=== PATIENT | female | born 1970 | race Caucasian/White ===

== ENCOUNTER 2020-10-06 13:11 | Observation (INO) | payer MEDICAID, SELFPAY ==
--- NOTE | ~2020-10-06 | CT_ITS ---
EXAMINATION: CT abdomen pelvis w con EXAM DATE: 10/06/2020 15:02 INDICATION: Abdominal pain. Yellow skin, jaundice. TECHNIQUE: Spiral CT of the abdomen and pelvis was performed following intravenous injection of 100 m L Omnipaque 350. Axial, coronal and sagittal images were reviewed. The dose-length product (DLP) fo r this examination was 278.01 mGy-cm. The exposure was tailored according to patient size (auto mA e xposure control), and iterative reconstruction (ASIR) was used as additional dose reduction technique . There is no prior study for comparison. FINDINGS: The gallbladder is only mildly distended with several small calcified gallstones including in the gallbladder neck. There is either pericholecystic fluid and/or gallbladder wall edema which is nonspecific given the periportal edema also present. Typically obstructed cystic duct leads to a dil ated gallbladder. Consider hepatitis and right upper quadrant sonogram to better evaluate gallbladder and check for possibility of sonographic Read's sign. Spleen, pancreas are unremarkable. Kidneys enhance symmetrically and there is no hydronephrosis. The uterus is unremarkable. The bladder is undistended at time of imaging. There is no retroperitoneal or pelvic lymphadenopathy. There is mild scattered arteriosclerotic disease. Small free pelvic flu id. The appendix is not positively visualized. There is no pericecal inflammatory change to suggest appe ndicitis. The stomach and small bowel are unremarkable. There is expected amount of colonic stool. No free intraperitoneal gas. The heart is normal in size. There are no pericardial or pleural e ffusions. The lung bases are unremarkable. There are no osteoblastic or osteolytic lesions identifi ed. IMPRESSION: Periportal edema, and gallbladder wall thickening which could be reactive versus perichol ecystic fluid. Cholelithiasis. Recommend checking for hepatitis. Can't exclude acute cholecystitis, c onsider right upper quadrant sonogram. Reviewed, dictated and finalized at location B. PERSON IMPRESSION: Periportal edema, and gallbladder wall thickening which could be re active versus pericholecystic fluid. Cholelithiasis. Recommend checking for hep atitis. Can't exclude acute cholecystitis, consider right upper quadrant sonogr am.
--- NOTE | ~2020-10-06 | US_ITS ---
EXAMINATION: US abdomen limited EXAM DATE: 10/06/2020 15:56 INDICATION: Abnormal liver function tests. TECHNIQUE: Multiple grayscale and Doppler images of the abdomen right upper quadrant were obtained (marc y a technologist who performed the scan) and subsequently reviewed. There is no prior study for alva leon. FINDINGS: The pancreatic head and body are normal in appearance. The pancreatic tail is not visualized. The l iver has normal echogenicity and contour. There are no focal liver lesions identified. There is no evidence of intrahepatic biliary duct dilation. Portal venous flow was seen in the hepatopedal, nor mal direction and has normal Doppler waveform. No right-sided hydronephrosis. Common bile duct measures 3 mm, which is normal. There is cholelithiasis within only mildly distended gallbladder. There is severely edematous gallbladder wall at 8 mm. No pericholecystic fluid. Technol ogist performing exam reports patient did not demonstrate sonographic Read's sign. Please note fawn t this sign is less reliable in patients who have received pain medication. IMPRESSION: Cholelithiasis. Nonspecific gallbladder wall thickening most likely reactive given absenc e of sonographic Read's sign and only mild gallbladder distention. Chronic cholecystitis not exclud able. Reviewed, dictated and finalized at location B. POLISHER IMPRESSION: Cholelithiasis. Nonspecific gallbladder wall thickening most likely reactive given absence of sonographic Read's sign and only mild gallbladder distention. Chronic cholecystitis not excludable.
[2020-10-06 13:49] VITALS: BP 119/73; PULSE 88; RESP 14; TEMP 36.6; O2SAT 99
[2020-10-06 14:12] LABS: Basophils Absolute Auto 0.1 K/mm3 (0.0-0.1); Basophils Percent Auto 1.5 % (0.2-1.2); Eosinophils Absolute Auto 0.1 K/mm3 (0-0.3); Eosinophils Percent Auto 1.7 % (0-4.4); Hematocrit 43.7 % (37.0-47.0); Hemoglobin 14.4 g/dL (12.0-15.0); Immature Granulocyte Absolute 0.01 K/mm3 (0.00-0.031); Immature Granulocyte Percent A 0.2 % (0-0.5); Lymphocytes Absolute Auto 1.05 K/mm3 (0.9-3.2); Lymphocytes Percent Auto 20.3 % (18.3-44.2); Mean Corpuscular Hemoglobin 29.9 pg (26-34); Mean Corpuscular Volume 90.7 fl (80-100); Mean Platelet Volume 10.6 fl (7.4-10.4); Monocytes Absolute Auto 0.7 K/mm3 (0.1-0.6); Monocytes Percent Auto 12.7 % (2.6-8.5); Neutrophils Absolute Auto 3.3 K/mm3 (1.3-6.7); Neutrophils Percent Auto 63.6 % (45.5-73.1); Platelet Count Result 282 k/mm3 (150-375); Red Blood Count 4.82 M/mm3 (4.2-5.4); Red Cell Distribution Width 19.9 % (11.5-14.5); White Blood Count 5.2 K/mm3 (4.5-10.0)
--- NOTE | 2020-10-06 14:35 | ED.GENADULT ---
HPI - General Adult General Chief complaint: Unspecified Stated complaint: JAUNDICE Time Seen by Provider: 10/06/20 14:11 Source: patient History of Present Illness HPI narrative: Patient is a 50 y/o female complaining of moderate yellowish discoloration of eyes since 2 weeks ago. There is no alleviating or exacerbating factor. She also has dark urine. She has some diarrhea and nausea, but no vomiting or abdominal pain. She states that she drinks heavily until 2 years. Now she drinks 2 beers daily. Related Data Home Medications Medication Instructions Recorded Confirmed No Home Medications 10/06/20 10/06/20 Allergies Allergy/AdvReac Type Severity Reaction Status Date / Time metronidazole [From Flagyl] Allergy Rash Verified 10/06/20 14:06 Penicillins Allergy Rash Verified 10/06/20 14:06 Review of Systems Constitutional: Constitutional: Reports as per HPI, Denies chills, Denies fever(s), Denies headache(s) and Denies weakness Eyes: Eyes: Denies blurry vision and Reports other ENT: Denies headache(s) and Denies neck pain Cardiovascular: Cardiovascular: Denies chest pain and Denies dyspnea Respiratory: Respiratory: Denies cough and Denies dyspnea Gastrointestinal: Gastrointestinal: Denies abdominal pain, Reports diarrhea, Denies nausea and Denies vomiting Genitourinary: Genitourinary: Denies hematuria and Denies dysuria Musculoskeletal: Musculoskeletal: Denies back pain and Denies neck pain Integumentary/Breasts: Skin/Breast: Reports jaundice Neurologic: Denies headache(s) and Denies weakness Exam Const: General: no acute distress and well developed Orientation/consciousness: oriented to person, oriented to place, oriented to time and patient oriented x3 HENMT: Head: normocephalic Ears: external ears normal General nose exam: Normal external nose present Eyes: General: appearance normal, both eyes and all related structures Conjunctivae: conjunctivae normal Sclera: scleral abnormality (yellow discoloration) diffuse Neck: Neck: normal visual inspection and full ROM Chest: Chest palpation & inspection: normal inspection of the chest and no tenderness Resp: Effort & Inspection: normal respiratory effort Auscultation: clear to auscultation bilaterally Cardio: Rate: regular rate Rhythm: regular rhythm GI: GI Palp: No abdominal tenderness and Yes Soft to palpation Skin: General skin exam: turgor normal and jaundice Neuro: General: oriented to person, oriented to place, oriented to time and patient oriented x3 Cognition (Neuro): normal cognition Extrem: General: normal to inspection, full ROM and no pedal edema Psych: Appearance: grossly normal Mental Status: mental status grossly normal Affect: normal affect Course Consultations Consultation #1: Discussed with JULIETA Chang, who agrees to admit. Date: 10/06/20 Time: 16:45 Consultation #2: Discussed with Dr. Kenyon Parkinson, who agrees to consult. He recommends ordering Hep B DNA PCR. Date: 10/06/20 Time: 16:48 Vital Signs Vital signs: Vital Signs Temperature 36.6 C 10/06/20 13:49 Pulse Rate 88 10/06/20 13:49 Respiratory Rate 14 10/06/20 13:49 Blood Pressure 119/73 10/06/20 13:49 Pulse Oximetry 99 10/06/20 13:49 Temperature 36.6 C 10/06/20 13:49 Pulse Rate 88 10/06/20 13:49 Respiratory Rate 14 10/06/20 13:49 Blood Pressure 119/73 10/06/20 13:49 Pulse Oximetry 99 10/06/20 13:49 Medical Decision Making Vital Signs Vital Signs: Vital Signs Temperature 36.6 C 10/06/20 13:49 Pulse Rate 88 10/06/20 13:49 Respiratory Rate 14 10/06/20 13:49 Blood Pressure 119/73 10/06/20 13:49 Pulse Oximetry 99 10/06/20 13:49 Temperature 36.6 C 10/06/20 13:49 Pulse Rate 88 10/06/20 13:49 Respiratory Rate 14 10/06/20 13:49 Blood Pressure 119/73 10/06/20 13:49 Pulse Oximetry 99 10/06/20 13:49 Lab Data Result diagrams: 10/06/20 13:55 10/06/20 13:55
[2020-10-06 14:37] LABS: Add Urine Microscopic? YES; Appearance Urine Cloudy (Clear); Bacteria Urine 2+ /hpf; Bilirubin Urine 2+ (Negative); Blood Urine 1+ (Negative); Color Urine Amber (Yellow); Glucose Urine UA Negative (Negative); Ketones Urine Negative (Negative); Leukocyte Esterase Ur Negative LEU/UL (Negative); Mucus Urine Heavy /lpf; Nitrate Urine Negative (Negative); Protein Urine 1+ mg/dL (Negative); Specific Grav Ur 1.017 (1.001-1.035); Squamous Epithelial Cell Urine Many /hpf (Few); WBC Urine 0-3 /hpf
[2020-10-06 14:45] LABS: Lactic Acid Reflex 1.3 mmol/L (0.7-2.1)
[2020-10-06 14:47] LABS: Albumin Level 3.3 g/dL (3.5-5.1); Alkaline Phosphatase 161 U/L (38-126); Anion Gap 4 mmol/L (8-16); Blood Urea Nitrogen 13 mg/dL (7-17); Calcium 9.3 mg/dL (8.4-10.2); Carbon Dioxide 30 mmol/L (22-30); Chloride 107 mmol/L (98-107); Estimated CRCL calculation 52 ml/min; Estimated Glomerular Filt Rate 59; Glucose 105 mg/dL (65-105); Lipase 90 U/L (23-300); Potassium 3.5 mmol/L (3.4-5.0); Sodium 141 mmol/L (137-145)
[2020-10-06 15:10] LABS: INR 1.2; Prothrombin Time 15.3 Seconds (11.1-14.7)
[2020-10-06 15:11] LABS: Partial Thromboplastin Time 31.6 SECONDS (22.3-36.8)
[2020-10-06 15:16] LABS: Alanine Aminotransferase 1354 U/L (4-35); Bilirubin,Total 30.4 mg/dL (0.2-1.3)
[2020-10-06 15:26] LABS: Aspartate Amino Transferase 1831 U/L (14-36)
[2020-10-06 15:34] LABS: Ammonia < 9 umol/L (9-30)
[2020-10-06 15:51] LABS: HAV RESULT Negative (Negative); Hepatitis B Core IgM Result Reactive (Negative); Hepatitis B Surface Antigen Positive (Negative)
[2020-10-06 15:52] LABS: Hepatitis C Virus Antibody Negative (Negative)
[2020-10-06 16:21] LABS: Acetaminophen < 10 ug/mL (10-30); Ethanol < 10 mg/dL (<10)
--- NOTE | 2020-10-06 18:01 | PC.NURSE ---
dinner tray ordered for pt at this time, spoke to clarence in dietary
[2020-10-06 18:11] VITALS: BP 126/76; PULSE 92; RESP 16; O2SAT 98
[2020-10-06 18:22] LABS: HIV 1/2 Ab P24 Ag Result Negative (Negative)
--- NOTE | 2020-10-06 18:35 | ADMGEN ---
This patient, Liane Diaz, was admitted to Medical Room 253-01. Patient/family oriented to hospital policies and general routines including ID bracelet, bed and alarms, visiting hours, pain management, procedures, bathroom and other care routines, personal items, smoking policy, room service/diet, and visiting hours. Information on how to activate the Rapid Response Team has been discussed. Patient/Family are encouraged to report perceived risks to care and to ask questions if they do not understand what they are told or what they should do.
[2020-10-06] MEDS: SODIUM CHLORIDE 0.9% IV 1,000 ML 125 ML IV CONT (18:40)
--- NOTE | 2020-10-06 19:00 | PM.IMHP ---
H&P: HPI History of Present Illness Date/Time: 10/06/20 19:00 Chief Complaint: Yellowing of the eyes and skin. Narrative: Liane Diaz is a 50-year-old female former smoker with history of alcohol abuse and lupus who presented to the emergency department earlier today via private vehicle from home after she noticed yellowing of her eyes and skin. About 2 weeks ago she looked in the mirror and thought that the whites of her eyes appeared to be a bit yellow and later that day a co-worker remarked that her skin appeared a bit yellow as well. Around the same time she developed intermittent upper abdominal discomfort and fullness, bloating, nausea, and diarrhea. Her stools are described as green and watery, but due become less frequent if and when she takes Pepto-Bismol. Her urine has been dark yellow/orange. She also reports pruritus, dry skin, and a lacy purple discoloration on her legs, arms, and hands. Today are consistent with acute hepatitis and marked hyperbilirubinemia. Hepatitis-B surface antigen was positive and hepatitis-B core IgM antibody was reactive, indicating acute infection. She admits to having unprotected sex recently with a man that she believes has a history of IV drug use. No known exposure to any other body fluids. No personal history of IV drug use. She has multiple tattoos but has not had a the new ink for many years. She denies fever, chills, sweats, vomiting, hematemesis, melena, and hematochezia. Review of Systems Review of Systems: Narrative: Twelve systems were reviewed with pertinent positives and negatives as per HPI. She denies headache. No recent cold or flu symptoms. 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 She drank heavily in the past, now drinking only 2 to 3 beers per night. No history of alcohol withdrawal signs or symptoms. No history of seizure. No dysuria. Except as documented, all other systems were reviewed and are negative. [facility] Past Medical History Medical History (Updated 10/06/20 @ 23:01 by Charlene Curran PA-C) Asthma History of alcohol abuse Drank heavily for about 20 years, now drinks a couple of beers a night. History of tobacco use Systemic lupus erythematosus Told she had lupus and was referred to a specialist in [place] however did not have follow-up. Surgical History Surgical History (Updated 10/06/20 @ 22:47 by Charlene Curran PA-C) History of facial surgery Patient reportedly had 62 facial plastic surgeries after being attacked by a dog at the age of 6. History of incision and drainage Left forearm spider bite. Family History Family History (Updated 10/06/20 @ 22:48 by Charlene Curran PA-C) Father Cerebral aneurysm Systemic lupus erythematosus Sibling Muscular dystrophy Social History Social History (Updated 10/06/20 @ 22:50 by Charlene Curran PA-C) Social History: The patient lives in [place] with her parents. No children, not . She smoked about half a pack of cigarettes off and on for many years and quit in 2018. She drank heavily in the past but for the last 2 years she has only been drinking 2 beers most evenings. Occasional marijuana use. She designates her parents as her surrogate decision makers and she wishes to be a full code. Years smoked: 30 Smoking status: Former smoker Smoking end date: 09/25/19 Alcohol intake: current Drinks per week: 2 Substance use: current Substance use type: marijuana Last use: 09/18/2020 Spiritual care concerns: No Meds Home Medications and Allergies Home Medications Medication Instructions Recorded Confirmed Type No Home Medications 10/06/20 10/06/20 History Allergies Allergy/AdvReac Type Severity Reaction Status Date / Time metronidazole [From Flagyl] Allergy Rash Verified 10/06/20 18:53 Penicillins Allergy Rash Verified
[2020-10-06 19:14] VITALS: BP 110/76; PULSE 74; RESP 19; TEMP 36.6; O2SAT 100; BMI 24.3
[2020-10-06 20:00] VITALS: PULSE 74; RESP 19; O2SAT 100
[2020-10-06 22:00] VITALS: BP 108/64; PULSE 60; RESP 16; TEMP 36; O2SAT 94
[2020-10-07 01:59] VITALS: BP 104/60; PULSE 79; RESP 16; TEMP 36.7; O2SAT 99
[2020-10-07 05:54] LABS: Basophils Absolute Auto 0.1 K/mm3 (0.0-0.1); Basophils Percent Auto 1.1 % (0.2-1.2); Eosinophils Absolute Auto 0.2 K/mm3 (0-0.3); Eosinophils Percent Auto 3.8 % (0-4.4); Hematocrit 37.4 % (37.0-47.0); Hemoglobin 12.5 g/dL (12.0-15.0); Lymphocytes Absolute Auto 1.25 K/mm3 (0.9-3.2); Lymphocytes Percent Auto 27.7 % (18.3-44.2); Mean Corpuscular HGB Conc 33.4 g/dl (32-36); Mean Corpuscular Hemoglobin 29.9 pg (26-34); Mean Corpuscular Volume 89.5 fl (80-100); Mean Platelet Volume 10.8 fl (7.4-10.4); Monocytes Absolute Auto 0.5 K/mm3 (0.1-0.6); Monocytes Percent Auto 11.8 % (2.6-8.5); Neutrophils Absolute Auto 2.5 K/mm3 (1.3-6.7); Neutrophils Percent Auto 55.6 % (45.5-73.1); Platelet Count Result 258 k/mm3 (150-375); Red Blood Count 4.18 M/mm3 (4.2-5.4); Red Cell Distribution Width 19.9 % (11.5-14.5); White Blood Count 4.5 K/mm3 (4.5-10.0)
[2020-10-07 05:56] LABS: Lactic Acid Reflex 0.9 mmol/L (0.7-2.1)
[2020-10-07 06:00] VITALS: BP 112/62; PULSE 66; RESP 16; TEMP 36.5; O2SAT 98
[2020-10-07 06:01] LABS: INR 1.4; Prothrombin Time 17.5 Seconds (11.1-14.7)
[2020-10-07 06:16] LABS: Albumin Level 2.6 g/dL (3.5-5.1); Alkaline Phosphatase 148 U/L (38-126); Anion Gap 3 mmol/L (8-16); Bilirubin,Total 25.4 mg/dL (0.2-1.3); Blood Urea Nitrogen 12 mg/dL (7-17); Calcium 8.6 mg/dL (8.4-10.2); Carbon Dioxide 26 mmol/L (22-30); Chloride 111 mmol/L (98-107); Estimated CRCL calculation 57 ml/min; Estimated Glomerular Filt Rate > 60; Glucose 80 mg/dL (65-105); Potassium 3.6 mmol/L (3.4-5.0); Sodium 140 mmol/L (137-145)
[2020-10-07 06:17] LABS: Alanine Aminotransferase 1032 U/L (4-35)
[2020-10-07 07:20] LABS: Aspartate Amino Transferase 1446 U/L (14-36)
[2020-10-07 10:00] VITALS: BP 90/50; PULSE 69; RESP 15; TEMP 36.6; O2SAT 97
--- NOTE | 2020-10-07 13:34 | PM.IMPN ---
Progress Note: A&P Assessment and Plan (1) Hepatitis B: Qualifiers: Hepatic coma status: without hepatic coma Hepatitis delta agent presence: without delta-agent Viral hepatitis chronicity: acute Qualified Code(s): B16.9 - Acute hepatitis B without delta-agent and without hepatic coma Code(s): B19.10 - Unspecified viral hepatitis B without hepatic coma Status: Acute Assessment and Plan: The patient appears to have acute hepatitis B. Expectant management at this time with supportive care. Dr. Forrester (Gastroenterology) has been consulted and his input is appreciated. Await further recommendations from Dr. Prescott Should she stay overnight, then monitor labs (2) Jaundice: Code(s): R17 - Unspecified jaundice Status: Acute Assessment and Plan: Please see above a/p. Reviewed her imaging and it is felt chronic cholecystitis is unlikely; Cholelithiasis noted (3) Alcohol abuse, daily use: Code(s): F10.10 - Alcohol abuse, uncomplicated Status: Acute Assessment and Plan: Alcohol cessation encouraged again today (4) Cholelithiasis: Code(s): K80.20 - Calculus of gallbladder without cholecystitis without obstruction Status: Acute Assessment and Plan: As noted on above imaging. (5) Systemic lupus erythematosus: Code(s): M32.9 - Systemic lupus erythematosus, unspecified Status: Inactive Assessment and Plan: F/u with PCP as outpatient Subjective Date/time seen: 10/07/20 13:34 Interval history: Patient is a 50 yo F with history of alcohol abuse, SLE, and asthma who is seen in follow up for Hepatitis B and jaundice. Patient states she feels okay today. She has no medical complaints at the moment. She is tolerating her diet. She has no had a BM since yesterday; she has noticed some cramping associate with BMs. No other complaints. Denies f/c/s, headaches, dizziness, lightheadedness, cp/palpitations, sob/cough, n/v/d/c, abd pain, changes in BMs, dysuria, calf pain/swelling. Review of Systems Review of Systems: All systems reviewed & are unremarkable except as noted in HPI and below Exam Narrative: Exam Narrative: General: Patient resting supine in bed in no acute distress. HEENT: Normocephalic, EOMI, oral mucosa moist. B/l scleral icterus Cardiovascular: Rate and rhythm are regular. No notable murmur, rub, or gallop. Respiratory: Lungs clear to auscultation all wahl. Non-labored breathing. Abdomen: Soft, mildly tender to palpation in LLQ, non-distended, bowel sounds present. Extremities: Peripheral pulses intact. No edema. NTTP b/l calves Neuro: No focal neurological deficits. Speech is clear. Objective Data Vital Signs Vital Signs: Last Vital Signs Temp 98 F 10/07/20 10:00 Pulse 69 10/07/20 10:00 Resp 15 10/07/20 10:00 BP 90/50 L 10/07/20 10:00 Pulse Ox 97 10/07/20 10:00 Intake/Output Intake/Output: Intake & Output 10/04/20 10/05/20 10/06/20 10/07/20 23:59 23:59 23:59 23:59 Intake Total 1080 Balance 1080 Meds/Results Radiology Results: ITS Impressions Abdomen/Pelvis CT 10/06/20 15:05 IMPRESSION: Periportal edema, and gallbladder wall thickening which could be reactive versus pericholecystic fluid. Cholelithiasis. Recommend checking for hepatitis. Can't exclude acute cholecystitis, consider right upper quadrant sonogram. Abdomen Ultrasound 10/06/20 15:57 IMPRESSION: Cholelithiasis. Nonspecific gallbladder wall thickening most likely reactive given absence of sonographic Read's sign and only mild gallbladder distention. Chronic cholecystitis not excludable. Labs Labs: Laboratory Tests 10/07/20 05:33 10/07/20 05:33 Quality VTE Prophylaxis VTE prophylaxis: mechan
[2020-10-07 14:00] VITALS: BP 92/48; PULSE 80; RESP 17; TEMP 37.6; O2SAT 93
--- NOTE | 2020-10-07 16:10 | WPDGICN ---
Assessment and Plan Assessment and plan (1) Acute hepatitis B: Code(s): B16.9 - Acute hepatitis B without delta-agent and without hepatic coma Status: Acute Assessment and Plan: acute hepatitis B, will repeat inr in the morning and trend liver enzymes bili coming down, probably she can go home tomorrow as long as she is tolerating diet HBe Ag/Ab and DNA ordered, hiv negative will get also HDV she will need follow up in office in 5 weeks with repeat labs 1 week prior to document resolution of hepatitis, if persistent then consider to start treatment with tenofovir or entecavir she should not drink alcohol at all (she says that will have 1 beer every other day or so) thiamine, mvi and nutrition (2) Jaundice: Code(s): R17 - Unspecified jaundice Status: Acute Assessment and Plan: from hepatitis B family members should be tested and receive vaccine she may have also underlying liver disease when she was alcoholic (3) Alcohol abuse, daily use: Code(s): F10.10 - Alcohol abuse, uncomplicated Status: Acute (4) Cholelithiasis: Code(s): K80.20 - Calculus of gallbladder without cholecystitis without obstruction Status: Acute GI Consult Note Consult date/time: 10/07/20 16:10 Reason for consult: acute hepatitis HPI: Liane Diaz is a 50 year old female former alcoholic (she says that was drinking heavily for years 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 She was found to have hepatitis with bilirubin 20, transaminases 1800's and serology showed Hepatitis-B surface antigen positive and hepatitis-B core IgM antibody was reactive, INR 1.4. She denies recent tattoos (had previously), recent travel but she has a monogamous partner having unprotected sex- she thinks that he has history of hepatitis C and IV drug use. Denies drug abuse. She had blood transfusion about 5 years ago when she was . No confusion, bleeding. Decrease appetite but she is eating. CT scan showed periportal edema, and gallbladder wall thickening which could be reactive versus pericholecystic fluid. Cholelithiasis. Review of Systems Constitutional: Constitutional: Reports fatigue and Reports weakness Eyes: Eyes: Denies blurry vision ENT: Reports Normal hearing present Cardiovascular: Cardiovascular: Denies chest pain Respiratory: Respiratory: Denies dyspnea Gastrointestinal: Gastrointestinal: Reports abdominal pain and Reports diarrhea Genitourinary: Genitourinary: Denies dysuria Musculoskeletal: Musculoskeletal: Denies neck pain Integumentary/Breasts: Skin/Breast: Denies dry skin Neurologic: Denies headache(s) Psychiatric: Psychiatric: Reports anxiety Hematologic/Lymphatic: Hematologic/Lymphatic: Denies easy bruising PMFSH Past Medical History Medical History (Updated 10/06/20 @ 23:01 by Charlene Curran PA-C) Asthma History of alcohol abuse Drank heavily for about 20 years, now drinks a couple of beers a night. History of tobacco use Systemic lupus erythematosus Told she had lupus and was referred to a specialist in [place] however did not have follow-up. Surgical History Surgical History (Updated 10/06/20 @ 22:47 by Charlene Curran PA-C) History of facial surgery Patient reportedly had 62 facial plastic surgeries after being attacked by a dog at the age of 6. History of incision and drainage Left forearm spider bite. Family History Family History (Updated 10/06/20 @ 22:48 by Charlene Curran PA-C) Father Cerebral aneurysm Systemic lupus erythematosus Sibling Muscular dystrophy Social History Social History (Updated 10/06/20 @ 22:50 by Charlene Curran PA-C) Social History: The patient lives in [place] with her parents. No children, not . She smoked about half a pack of cig
[2020-10-07 17:30] VITALS: BP 98/50; PULSE 76; RESP 19; TEMP 36.8; O2SAT 97
[2020-10-07 20:00] VITALS: BP 114/68; PULSE 75; RESP 16; TEMP 37.1; O2SAT 100
[2020-10-08 00:26] VITALS: BP 118/56; PULSE 69; RESP 16; TEMP 37.1; O2SAT 100
[2020-10-08 04:00] VITALS: BP 110/60; PULSE 65; RESP 16; TEMP 36.8; O2SAT 100
[2020-10-08 05:55] LABS: INR 1.3; Prothrombin Time 17.1 Seconds (11.1-14.7)
[2020-10-08 05:58] LABS: Hematocrit 37.2 % (37.0-47.0); Hemoglobin 12.3 g/dL (12.0-15.0); Mean Corpuscular HGB Conc 33.1 g/dl (32-36); Mean Corpuscular Hemoglobin 29.6 pg (26-34); Mean Corpuscular Volume 89.4 fl (80-100); Mean Platelet Volume 10.4 fl (7.4-10.4); Platelet Count Result 265 k/mm3 (150-375); Red Blood Count 4.16 M/mm3 (4.2-5.4); Red Cell Distribution Width 19.6 % (11.5-14.5); White Blood Count 4.6 K/mm3 (4.5-10.0)
[2020-10-08 06:00] VITALS: BP 110/60; PULSE 65; RESP 16; TEMP 36.8; O2SAT 100
[2020-10-08 06:06] LABS: Albumin Level 2.5 g/dL (3.5-5.1); Alkaline Phosphatase 152 U/L (38-126); Anion Gap 2 mmol/L (8-16); Bilirubin,Total 25.8 mg/dL (0.2-1.3); Blood Urea Nitrogen 12 mg/dL (7-17); Calcium 8.4 mg/dL (8.4-10.2); Carbon Dioxide 28 mmol/L (22-30); Chloride 109 mmol/L (98-107); Estimated CRCL calculation 57 ml/min; Estimated Glomerular Filt Rate > 60; Glucose 85 mg/dL (65-105); Potassium 3.6 mmol/L (3.4-5.0); Sodium 139 mmol/L (137-145)
[2020-10-08 06:50] LABS: Alanine Aminotransferase 939 U/L (4-35); Aspartate Amino Transferase 1362 U/L (14-36)
[2020-10-08] MEDS: THIAMINE HCL 100 MG TABLET 200 MG PO (08:14)
--- NOTE | 2020-10-08 09:06 | PM.DS ---
DS: Admitting Diagnosis Admitting Diagnosis Admitting Diagnosis: Acute hepatitis B DS: Discharge Diagnosis Discharge Diagnosis (1) Hepatitis B: Qualifiers: Hepatic coma status: without hepatic coma Hepatitis delta agent presence: without delta-agent Viral hepatitis chronicity: acute Qualified Code(s): B16.9 - Acute hepatitis B without delta-agent and without hepatic coma Code(s): B19.10 - Unspecified viral hepatitis B without hepatic coma Status: Acute Assessment and Plan: The patient appears to have acute hepatitis B. Expectant management at this time with supportive care. Dr. Forrester (Gastroenterology) has been consulted and his input is appreciated. Discussed case with him today who was okay with discharge; follow up labs in 2-5 weeks with CMP, CBC, INR and hep b surface antigen, then follow up with him afterwords D/c today Repeat CBC, CMP, INR, and hep b surface antigen as noted above F/u with PCP and Dr. Prescott (2) Jaundice: Code(s): R17 - Unspecified jaundice Status: Acute Assessment and Plan: Please see above a/p. Reviewed her imaging and it is felt chronic cholecystitis is unlikely; Cholelithiasis noted (3) Alcohol abuse, daily use: Code(s): F10.10 - Alcohol abuse, uncomplicated Status: Acute Assessment and Plan: Alcohol cessation encouraged again today (4) Cholelithiasis: Code(s): K80.20 - Calculus of gallbladder without cholecystitis without obstruction Status: Acute Assessment and Plan: As noted on above imaging. (5) Systemic lupus erythematosus: Code(s): M32.9 - Systemic lupus erythematosus, unspecified Status: Inactive Assessment and Plan: F/u with PCP as outpatient DS: Summary Hospital Course Reason for hospitalization: Hepatitis B, jaundice, elevated bilirubin Hospital Course: Date of arrival: 10/06/20 Date of discharge: 10/08/20 Patient is a 50-year-old female former smoker with history of alcohol abuse and lupus who presented to the emergency department earlier on 10/06 via private vehicle from home after she noticed yellowing of her eyes and skin. While in the ED, she was found to have marked hyperbilirubinemia and acute hepatitis with positive hepatitis B surface antigen and reactive hepatitis b core IgM antibody indicating acute infection. She admitted to having unprotected sex recently with a man she believed had history of IV drug use; no known exposure to any other body fluids or personal IV drug use, or no recent tattoos. Dr. Forrester (GI) Patient admitted under this setting for supportive care for hepatitis infection. Please see H&P for further details. Patient was admitted to the hospitalist service for further management/treatment. Patient was initially given IV fluids although this was discontinued. She was tolerating he diet. Her labs trended down, but were still significantly elevated by discharge. Dr. Prescott ordered hep b DNA pcr and quant. Patient was to follow up with Dr. Prescott in roughly a months time for further monitoring of her CMP and INR. She was to also follow up with her PCP as well. Further management of her hepatitis B infection was to be done as outpatient. Patient agreeable and comfortable with plan for discharge. Patient hemodynamically stable and in improved condition for discharge on 10/08 Status at Discharge Overall status at discharge: patient is progressing back to baseline Time Spent with Patient Time attestation: Total time spent providing and/or coordinating discharge services: Time spent: Greater than 30 minutes Exam Narrative: Exam Narrative: General: Patient resting supine in bed in no acute distress. HEENT: Normoceph
[2020-10-08 17:28] LABS: Hepatitis B DNA PCR 3.64 Log IU/mL; Hepatitis B DNA PCR 4380 IU/mL
[2020-10-10 18:31] LABS: Hepatitis Be Antibody Nonreactive; Hepatitis Be Antigen Reactive
[2020-10-15 18:21] LABS: Hepatitis Delta Antibody NEGATIVE
== END 2020-10-08 10:40 | disposition home or self-care (01) ==
LOC: ANHED 17:02 → ANH2MED 17:37
PROVIDERS: Emergency Medicine; Internal Medicine Gastroenterology; Physician Assistant; Admitting Provider Family Medicine; Emergency Provider Emergency Medicine; Visit Provider Physician Assistant
DX: B16.9 Acute hepatitis B without delta-agent and without hepatic coma (principal); R17 Unspecified jaundice; M32.9 Systemic lupus erythematosus, unspecified; F12.90 Cannabis use, unspecified, uncomplicated; F10.10 Alcohol abuse, uncomplicated; K80.20 Calculus of gallbladder without cholecystitis without obstruction; J45.909 Unspecified asthma, uncomplicated; Z87.891 Personal history of nicotine dependence; Z20.2 Contact with and (suspected) exposure to infections with a predominantly sexual mode of transmission
CPT/HCPCS: 36415; 74177; 76705; 80053; 80074; 80307; 81001; 81025; 82140; 83605; 83690; 83735; 85025; 85027; 85610; 85730; 86692; 86703; 86707; 87040; 87350; 87517; 96360; 96361; 99285; A9270; G0378; G0379; G0432; J7030; Q9967

== ENCOUNTER 2020-10-29 17:34 | Inpatient (IN) | payer MEDICAID, SELFPAY ==
[2020-10-29] VITALS (18 sets, daily range): BP systolic 76–100; BP diastolic 53–78; PULSE 69–100; RESP 13–36; TEMP 37.6–38.3; O2SAT 91–100
--- NOTE | ~2020-10-29 | XR_ITS ---
XR chest port-a-cath/central 10/29/2020 22:44 Indication: Central line placement Procedure: AP portable chest Comparison: 10/29/2020 Findings: There is extensive bilateral airspace disease, compatible with pneumonia or edema. Pleural effusion or pneumothorax. No acute osseous abnormality. Impression: 1: Extensive bilateral airspace disease, left greater than right, pneumonia versus edema. Reviewed, dictated and finalized at location A. E BUILDER Impression: 1: Extensive bilateral airspace disease, left greater than right, pneumonia shonna yaritza edema.
--- NOTE | ~2020-10-29 | XR_ITS ---
XR chest 1V portable 10/29/2020 18:46 Indication: Cough and shortness of breath. Lupus. Procedure: AP portable chest Comparison: No prior studies for comparison. Findings: Patchy left-sided airspace disease. Focal right lower lung zone airspace disease. No pleura l effusion. Heart size normal. No pneumothorax. Impression: 1: Patchy bilateral airspace disease, left greater than right, consistent with pneumonia. Reviewed, dictated and finalized at location A. MANAGER Impression: 1: Patchy bilateral airspace disease, left greater than right, consistent with pneumonia.
--- NOTE | 2020-10-29 17:57 | ECG_ITS ---
Measurements Intervals [place] Rate: 79 P: 95 [place]: 162 QRS: 83 QRSD: 90 T: 75 QT: 358 QTc: 411 Interpretive Statements SINUS RHYTHM EARLY PRECORDIAL R/S TRANSITION BASELINE ARTIFACT- II, III, AVR, AVL, AVF, V4-V6 BORDERLINE ECG Electronically Signed On 10-29-2020 18:54:21 ARTIFICIAL BREEDING TECHNICIAN by Emre Lambert D.O.
--- NOTE | 2020-10-29 17:59 | ED.WEAKNESS ---
HPI - Weakness General Chief complaint: Fever Stated complaint: cough/jaundice Time Seen by Provider: 10/29/20 17:49 History of Present Illness HPI Narrative: 50 yo female w/ h/o hepatitis presents to the ED for weakness, fever, cough, SOB. She has not been feeling well for quite awhile. Over the last few days developed cough, SOB, subjective fever. Additional symptoms in clude nausea, poor appetite, and jaundice. She reports that she was here for liver failure last month. 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 On review it appears that shewas treated for acute hepatitis B infection. She believes fawn her mother has COVID-19, whom she lives with. She cannot provide any of the details. Related Data Allergies Allergy/AdvReac Type Severity Reaction Status Date / Time metronidazole [From Flagyl] Allergy Rash Verified 10/29/20 21:20 Penicillins Allergy Rash Verified 10/29/20 21:20 Review of Systems Review of Systems: All systems reviewed & are unremarkable except as noted in HPI and below Constitutional: Constitutional: Reports fever(s) and Reports weakness Eyes: Eyes: Reports no additional eye complaints Cardiovascular: Cardiovascular: Denies chest pain Respiratory: Respiratory: Reports chest congestion, Reports cough and Reports dyspnea Gastrointestinal: Gastrointestinal: Denies abdominal pain and Reports nausea Genitourinary: Genitourinary: Denies hematuria and Denies nocturia Musculoskeletal: Musculoskeletal: Reports myalgias Neurologic: Reports weakness PMFSH Past Medical History Medical History Asthma History of alcohol abuse Drank heavily for about 20 years, now drinks a couple of beers a night. History of tobacco use Systemic lupus erythematosus Told she had lupus and was referred to a specialist in [place] however did not have follow-up. Surgical History Surgical History History of facial surgery Patient reportedly had 62 facial plastic surgeries after being attacked by a dog at the age of 6. History of incision and drainage Left forearm spider bite. Family History Family History Father Cerebral aneurysm Systemic lupus erythematosus Sibling Muscular dystrophy Social History Social History Social History: The patient lives in [place] with her parents. No children, not . She smoked about half a pack of cigarettes off and on for many years and quit in 2019. She drank heavily in the past but for the last 2 years she has only been drinking 2 beers most evenings. Occasional marijuana use. She designates her parents as her surrogate decision makers and she wishes to be a full code. Years smoked: 30 Smoking status: Former smoker Smoking end date: 09/25/19 Alcohol intake: current Drinks per week: 2 Substance use: current Substance use type: marijuana Last use: 09/18/2020 Spiritual care concerns: No Exam Const: General: no acute distress, alert and ill appearing acutely and chronically Orientation/consciousness: patient oriented x3 HENMT: Mouth: Yes dry mucous membranes Eyes: Conjunctivae: conjunctival abnormality bilateral conjunctival icterus Neck: Neck: normal visual inspection Resp: Effort & Inspection: tachypneic Auscultation: crackles Cardio: Rate: tachycardic Rhythm: regular rhythm GI: GI Palp: Yes Soft to palpation and Yes Tenderness to palpation present (GI) (periumbilical) Skin: General skin exam: jaundice Neuro: General: patient oriented x3, no focal motor deficits and CN's II-XI intact bilaterally Cranial nerves: Yes Nystagmus not present Speech: normal speech Extrem: General: normal to inspection Course Vital Signs Vital signs: Vital Signs Temperature 38.3 C H 10/29/20 18:15 Pulse Rate 100 10/29/20 18:15 Respir
--- NOTE | 2020-10-29 18:30 | PC.NURSE ---
patient here via EMS with cough, fever and weakness. see initial notes. alert but weak. has almost continuous dry hacking cough. states she has been sick and weak with this same cough since she was discharged a few weeks ago. fever here 101.0. patient's mother is here in ED room 4 with possible failure to thrive and dehydration after Covid. attempting to get 2nd IV access on patient and labs drawn. EKG done. patient on shade cutter.
[2020-10-29 18:35] LABS: Alveolar/Arterial O2 Gradient 139.7 mmHg; Base Excess ABG 0.5 mEq/l (+/-2.0); Fractional Inspired Oxygen 32 %; HCO3 ABG 20.7 mEq/l (22.0-26.0); Oxygen Saturation ABG 95.4 % (95.0-100.0); Oxyhemoglobin 93.8 % THb (90.0-100.0); PO2 ABG 62.5 mmHg (80.0-100.0); PO2 FiO2 Ratio Arterial Blood 1.95 %; Total Hemoglobin 12.1 g/dL (12.0-18.0)
[2020-10-29 18:37] LABS: PCO2 ABG 22.2 mmHg (35.0-45.0); pH ABG 7.587 (7.350-7.450)
[2020-10-29 18:38] LABS: Device NASAL CANNULA; Modified Allen's Test Pass; Site Drawn RIGHT BRACHIAL
[2020-10-29 18:42] LABS: Lactic Acid Reflex 1.8 mmol/L (0.7-2.1)
--- NOTE | 2020-10-29 18:44 | PC.NURSE ---
called lab to redraw labs at this time. Charge nurse Nida and Treva Barragan tried to draw labs.
[2020-10-29] MEDS: SODIUM CHLORIDE 0.9% IV 1,000 ML 999 ML IV CONT ×2 (18:50→20:55)
[2020-10-29] MEDS: KETOROLAC 30 MG/ML VIAL (*BKC) (18:51)
--- NOTE | 2020-10-29 19:42 | PC.NURSE ---
Chirag KIMBROUGH at bedside with ultrasound machine. will look for another peripheral access. lab states all blood was hemolyzed.
[2020-10-29 20:00] LABS: Basophils Percent Auto 0.4 % (0.2-1.2); Eosinophils Percent Auto 0.2 % (0-4.4); Hematocrit 28.1 % (37.0-47.0); Hemoglobin 8.9 g/dL (12.0-15.0); Immature Granulocyte Absolute 0.02 K/mm3 (0.00-0.031); Immature Granulocyte Percent A 0.4 % (0-0.5); Lymphocytes Absolute Auto 0.83 K/mm3 (0.9-3.2); Lymphocytes Percent Auto 17.8 % (18.3-44.2); Mean Corpuscular HGB Conc 31.7 g/dl (32-36); Mean Corpuscular Hemoglobin 30.7 pg (26-34); Mean Corpuscular Volume 96.9 fl (80-100); Mean Platelet Volume 11.4 fl (7.4-10.4); Monocytes Absolute Auto 0.3 K/mm3 (0.1-0.6); Neutrophils Absolute Auto 3.5 K/mm3 (1.3-6.7); Neutrophils Percent Auto 75.2 % (45.5-73.1); Platelet Count Result 156 k/mm3 (150-375); Red Cell Distribution Width 16.4 % (11.5-14.5); White Blood Count 4.7 K/mm3 (4.5-10.0)
[2020-10-29 20:12] LABS: Ammonia 14 umol/L (9-30)
[2020-10-29 20:13] LABS: Alanine Aminotransferase 103 U/L (4-35); Albumin Level 2.3 g/dL (3.5-5.1); Alkaline Phosphatase 349 U/L (38-126); Anion Gap 4 mmol/L (8-16); Aspartate Amino Transferase 181 U/L (14-36); Bilirubin,Total 8.4 mg/dL (0.2-1.3); Blood Urea Nitrogen 17 mg/dL (7-17); Calcium 7.1 mg/dL (8.4-10.2); Carbon Dioxide 24 mmol/L (22-30); Chloride 114 mmol/L (98-107); Creatine Kinase 94 U/L (30-135); Estimated CRCL calculation 50 ml/min; Estimated Glomerular Filt Rate > 60; Glucose 92 mg/dL (65-105); Potassium 3.6 mmol/L (3.4-5.0); Sodium 142 mmol/L (137-145)
[2020-10-29 20:34] LABS: INR 1.1; Prothrombin Time 14.6 Seconds (11.1-14.7)
[2020-10-29 20:37] LABS: Partial Thromboplastin Time 33.8 SECONDS (22.3-36.8)
[2020-10-29 20:40] LABS: Add Urine Microscopic? YES; Amorphous Sediment Urine Few; Appearance Urine Clear (Clear); Bacteria Urine 3+ /hpf; Bilirubin Urine 1+ (Negative); Blood Urine Negative (Negative); Color Urine Amber (Yellow); Glucose Urine UA Negative (Negative); Ketones Urine Negative (Negative); Leukocyte Esterase Ur 2+ LEU/UL (Negative); Mucus Urine Few /lpf; Nitrate Urine Negative (Negative); Protein Urine 1+ mg/dL (Negative); Specific Grav Ur 1.017 (1.001-1.035); Squamous Epithelial Cell Urine Moderate /hpf (Few); WBC Clumps Urine Present /HPF; WBC Urine 51-75 /hpf
[2020-10-29 20:44] LABS: Thyroid Stimulating Hormone 0.486 uIU/mL (0.465-4.680)
--- NOTE | 2020-10-29 21:05 | PC.NURSE ---
electrical maintenance technician to bedside to collect 2nd blood culture. antibiotics ordered. this RN placed order for blood cultures. patient aware of all. on manager council. feels better after some IVF and toradol. BP continues to be soft. cuff repositioned. patient repositioned. head of bed down some. still on 2L NC due to dyspnea and does have decreased RA sat with movement and coughing.
--- NOTE | 2020-10-29 21:15 | PC.NURSE ---
IV antibiotics started. Decadron given. patient resting more comfortably at this time.
--- NOTE | 2020-10-29 21:45 | PC.NURSE ---
risk tech to bedside to collect 2nd blood culture. antibiotics ordered. this RN placed order for blood cultures. patient aware of all. on director cardiac. feels better after some IVF and toradol. BP continues to be soft. cuff repositioned. patient repositioned. head of bed down some. still on 2L NC due to dyspnea and does have decreased RA sat with movement and coughing.
--- NOTE | 2020-10-29 22:25 | PC.NURSE ---
provider and this RN to bedside for central line placement. all explained to patient. this RN and charge nurse signed consent for patient. patient's father was given update by Yecenia KIMBROUGH on both this patient and her mother's condition and plan for admission. patient will be transferred to ICU 1 after procedure done.
--- NOTE | 2020-10-29 22:45 | PC.NURSE ---
done with TLC placement. patient tolerated well. head up some after procedure. BP marginal. waiting for xray to come for line placement. report called to Terrance KIMBROUGH in ICU. aware of all. will transfer to ICU 1 after xray done and reviewed by Dr. Barclay.
--- NOTE | 2020-10-29 23:10 | PC.NURSE ---
patient transferred to ICU via RN and monitor. RN notified that levophed has not been started in ED. Dr. Barclay ok with line placement. patient alert but fatigued. all explained to patient prior to transfer.
[2020-10-29] MEDS: LACTATED RINGERS 1,000 ML 100 ML IV CONT ×2 (23:11→23:45)
--- NOTE | 2020-10-29 23:40 | PC.NURSE ---
This patient, Liane Diaz, was admitted to Intensive Care Unit-1. Patient/family oriented to hospital policies and general routines including ID bracelet, bed and alarms, visiting hours, pain management, procedures, bathroom and other care routines, personal items, smoking policy, room service/diet, and visiting hours. Information on how to activate the Rapid Response Team has been discussed. Patient/Family are encouraged to report perceived risks to care and to ask questions if they do not understand what they are told or what they should do.
[2020-10-30] VITALS (12 sets, daily range): BP systolic 91–102; BP diastolic 63–78; PULSE 59–89; RESP 12–24; TEMP 36.6–37.5; O2SAT 94–100; BMI 25.7
--- NOTE | 2020-10-30 00:44 | PM.IMHP ---
H&P: HPI History of Present Illness Date/Time: 10/30/20 00:44 Chief Complaint: Shortness of breath Narrative: This is a 50-year-old female former smoker with history of alcohol abuse, SLE, and recent HBV infection presented to the hospital with increased shortness of breath, generalized weakness, fever, cough, and malaise. The patient was just admitted to our Hospitalist service last month when she was in liver failure secondary to hepatitis B infection. The patient believes her mother has had COVID-19. The patient was evaluated in the ER tonight and found to be septic with tachypnea and tachycardia. She was treated with NS IV bolus, IV antibiotics. The patient has not been seeing anyone for her liver failure. She denies any other symptoms at this time. Review of Systems Review of Systems: All systems reviewed & are unremarkable except as noted in HPI and below PMFSH Past Medical History Medical History Asthma History of alcohol abuse Drank heavily for about 20 years, now drinks a couple of beers a night. History of tobacco use Systemic lupus erythematosus Told she had lupus and was referred to a specialist in [place] however did not have follow-up. Surgical History Surgical History History of facial surgery Patient reportedly had 62 facial plastic surgeries after being attacked by a dog at the age of 6. History of incision and drainage Left forearm spider bite. Family History Family History Father Cerebral aneurysm Systemic lupus erythematosus Sibling Muscular dystrophy Social History Social History Social History: The patient lives in [place] with her parents. No children, not . She smoked about half a pack of cigarettes off and on for many years and quit in 2019. She drank heavily in the past but for the last 2 years she has only been drinking 2 beers most evenings. Occasional marijuana use. She designates her parents as her surrogate decision makers and she wishes to be a full code. Years smoked: 30 Smoking status: Former smoker Smoking end date: 09/25/19 Alcohol intake: former Drinks per week: 2 Substance use: current Substance use type: marijuana Last use: 09/18/2020 Gender identity (if verbalized by the patient): Female Spiritual care concerns: No Meds Home Medications and Allergies Home Medications Medication Instructions Recorded Confirmed Type famotidine 20 mg PO Q12HR #60 tablet 11/01/20 Rx folic acid 1 mg PO DAILY #30 tablet 11/01/20 Rx sulfamethoxazole-trimethoprim 1 tablet PO Q12H #3 tablet 11/01/20 Rx [Bactrim DS] thiamine HCl (vitamin B1) [Vitamin 100 mg PO QAM #30 tablet 11/01/20 Rx B-1] Allergies Allergy/AdvReac Type Severity Reaction Status Date / Time metronidazole [From Flagyl] Allergy Mild Rash Verified 10/30/20 00:02 Penicillins Allergy Mild Rash Verified 10/30/20 00:02 Vital Signs Vital Signs - 24 hr 10/29/20 18:15 10/29/20 19:07 10/29/20 19:53 Temperature 38.3 C H Pulse Rate 100 83 83 Respiratory Rate 36 H 16 15 Blood Pressure Pulse Oximetry 91 100 100 10/29/20 20:00 10/29/20 20:01 10/29/20 20:02 Temperature Pulse Rate 78 77 77 Respiratory Rate 25 H 24 H 28 H Blood Pressure 100/58 L Pulse Oximetry 100 100 100 10/29/20 20:23 10/29/20 20:30 10/29/20 20:31 Temperature Pulse Rate 82 76 75 Respiratory Rate 22 H 14 23 H Blood Pressure 81/53 L Pulse Oximetry 94 94 10/29/20 20:37 10/29/20 20:44 10/29/20 20:45 Temperature Pulse Rate 73 76 76 Respiratory Rate 15 13 22 H Blood Pressure 76/61 L 90/60 L Pulse Oximetry 96 95 94 10/29/20 20:46 10/29/20 20:50 10/29/20 21:00 Temperature Pulse Rate 76 74 76 Respiratory Rate 28 H 28 H 31 H Blood Pressure 86/61 L Puls
[2020-10-30 05:14] LABS: Hematocrit 30.8 % (37.0-47.0); Hemoglobin 9.6 g/dL (12.0-15.0); Mean Corpuscular HGB Conc 31.2 g/dl (32-36); Mean Corpuscular Hemoglobin 30.1 pg (26-34); Mean Corpuscular Volume 96.6 fl (80-100); Mean Platelet Volume 11.7 fl (7.4-10.4); Platelet Count Result 179 k/mm3 (150-375); Red Blood Count 3.19 M/mm3 (4.2-5.4); Red Cell Distribution Width 16.5 % (11.5-14.5); White Blood Count 3.1 K/mm3 (4.5-10.0)
[2020-10-30 05:36] LABS: Anion Gap 3 mmol/L (8-16); Blood Urea Nitrogen 14 mg/dL (7-17); Calcium 7.2 mg/dL (8.4-10.2); Carbon Dioxide 24 mmol/L (22-30); Chloride 111 mmol/L (98-107); Estimated CRCL calculation 50 ml/min; Estimated Glomerular Filt Rate > 60; Glucose 145 mg/dL (65-105); Potassium 4.7 mmol/L (3.4-5.0); Sodium 138 mmol/L (137-145)
[2020-10-30] MEDS: FAMOTIDINE 20 MG TABLET PO ×2 (08:55→20:36)
--- NOTE | 2020-10-30 09:03 | WPDCNINT ---
Assessment and Plan Assessment and plan (1) Sepsis: Code(s): A41.9 - Sepsis, unspecified organism Status: Acute Assessment and Plan: Patient presented with cough, shortness of breath, fevers, was found to be hypotensive, tachypneic and tachycardic. IV fluids were given in the ED -patient seems dehydrated and hypovolemic. Will give her small IV fluid bolus -lactic acid is normal -patient has been started on ceftriaxone and azithromycin for possible pneumonia -will add Tessalon Perles and guaifenesin for cough -blood and urine cultures have been obtained (2) Pneumonia: Code(s): J18.9 - Pneumonia, unspecified organism Status: Acute Assessment and Plan: Chest x-ray reviewed, continue antibiotics as above -patient currently on 2 L nasal cannula with 100% oxygen saturations (3) UTI (urinary tract infection): Code(s): N39.0 - Urinary tract infection, site not specified Status: Acute Assessment and Plan: UA with possible UTI -urine cultures pending, continue antibiotics as above (4) Suspected 2019-nCoV infection: Code(s): Z20.822 - Contact with and (suspected) exposure to COVID-19 Status: Acute Assessment and Plan: Patient presented with fevers, cough, weakness and malaise -SARS-CoV-2 PCR ordered and pending -continue droplet, airborne and contact isolation/precautions (5) Alcohol abuse, daily use: Code(s): F10.10 - Alcohol abuse, uncomplicated Status: Acute Assessment and Plan: Will start thiamine, folic acid -will monitor for alcohol withdrawal (6) Jaundice: Code(s): R17 - Unspecified jaundice Status: Acute Assessment and Plan: Patient with history of hepatitis-B recently diagnosed in September 2020 -she supposed to follow with a public information specialist but has not done as yet. Additional Plan Discussed with patient updated with her condition and plan of care. Code status: Full code Critical care time spent: 43 minutes Due to a high probability of clinically significant, life threatening deterioration, the patient required my highest level of preparedness to intervene emergently and I personally spent this critical care time directly and personally managing the patient. This critical care time included obtaining a history; examining the patient; pulse oximetry; ordering and review of studies; arranging urgent treatment with development of a management plan; evaluation of patient's response to treatment; frequent reassessment; and discussions with other providers. It was exclusive of separately billable procedures and treating other patients and teaching time. Please see Assessment and Plan section and the rest of the note for further information on patient assessment and treatment Department Store General Manager Consult Note Consult date: 10/30/20 Time Seen: 07:05 Reason for consult: Fever, cough, suspect COVID-19, jaundice HPI: Liane Diaz is a 50 year old female with past medical history of alcohol abuse, tobacco use, SLE, hepatitis-B diagnosed recently in September 2020 presented to the ED with complains of fever,, generalized weakness, malaise for the last 3-4 days. Patient was also complaining of poor appetite secondary to nausea. Stated she has not had much oral intake for solids and liquids. In the ED patient was patient was found to be hypotensive, tachycardic and tachypneic, IV fluid bolus was given which improved her blood pressures. Central line was inserted but was never started on pressors. Patient was transferred to the ICU for close monitoring and further management Patient seen and examined the ICU, is awake, alert oriented to place and person. Patient states she is hungry and wants to eat. She feels thirsty and dehydrated states she has not had any oral intake for the last few days due to nausea. Patient also complains of cough which seems to be better this morning. Patient states she has some heartburn for which she once famotidi
[2020-10-30] MEDS: SODIUM CHLORIDE 0.9% IV 500 ML IV CONT (10:33)
[2020-10-30] MEDS: BENZONATATE 100 MG CAPSULE 200 MG PO ×3 (10:34→16:56)
[2020-10-30] MEDS: THIAMINE HCL 100 MG TABLET PO (10:55)
[2020-10-30] MEDS: FOLIC ACID 1 MG TABLET PO (10:55)
--- NOTE | 2020-10-30 12:38 | PM.IMPN ---
Progress Note: A&P Assessment and Plan (1) Septic shock: Code(s): A41.9 - Sepsis, unspecified organism; R65.21 - Severe sepsis with septic shock Status: Acute Assessment and Plan: On Presentation, patient had a blood pressure of 76/61. She has developed fever as well. Blood pressure better controlled with IV fluids. She has not required pressors. Cultures are pending. Continue to monitor blood pressure closely. Continue IV antibiotics. COVID (+) - No Remdesivir given her recent HepB infection and will hold Decadron as well. Patient on room air so these medications are not indicated at this time. (2) Pneumonia: Code(s): J18.9 - Pneumonia, unspecified organism Status: Acute Assessment and Plan: Chest x-ray shows bibasilar left greater than right airspace disease probably pneumonia. Images were reviewed. Patient with minimal oxygen requirement. Wean oxygen as tolerated. Continue Rocephin and azithromycin. White count actually is low today. Continue to follow. (3) UTI (urinary tract infection): Code(s): N39.0 - Urinary tract infection, site not specified Status: Acute Assessment and Plan: UA noted. Urine and blood cultures are pending. Continue IV antibiotics. (4) Suspected 2019-nCoV infection: Code(s): Z20.822 - Contact with and (suspected) exposure to COVID-19 Status: Acute Assessment and Plan: COVID 19 seems less likely but testing has been performed and patient is currently under isolation with droplet precautions. Follow up on COVID test. Continue isolation until results are known. (5) Viral hepatitis B chronic: Code(s): B18.1 - Chronic viral hepatitis B without delta-agent Status: Acute Assessment and Plan: Hepatitis B DNA PCR was positive. Hepatitis delta antibody was negative. HIV was negative. These were drawn last month during her prior hospitalization. Her liver enzymes have improved since that time with the exception that her alkaline phosphatase level has climbed. Ammonia level is negative. Continue to follow LFTs. Continue supportive care. Patient follow-up with GI as an outpatient. Consult GI if her condition changes. (6) Jaundice: Code(s): R17 - Unspecified jaundice Status: Acute Assessment and Plan: Bilirubin level last admission month ago was 25-30. Bilirubin level this admission is much improved at 8.4. Continue to follow. (7) Anemia: Code(s): D64.9 - Anemia, unspecified Status: Acute Assessment and Plan: Hemoglobin was normal last admission a month ago. Hemoglobin is 8.9 on admission. Repeat hemoglobin this morning is 9.6. Will check iron studies. Continue Pepcid. (8) History of alcohol abuse: Code(s): F10.11 - Alcohol abuse, in remission Status: Inactive Assessment and Plan: Patient states that she has not drank for about 3 weeks. Unclear this is accurate. Will continue thiamine and folate. Check CIWA scores. Anxiolytics are on hold due to her soft blood pressure. Monitor clinically. Treat accordingly. (9) DVT prophylaxis: Code(s): Z29.9 - Encounter for prophylactic measures, unspecified Status: Acute Assessment and Plan: SCDs Subjective Date/time seen: 10/30/20 12:38 Interval history: Date of service 10/30/2020 50-year-old female with lupus, alcoholism and recent infection with hepatitis B here for fever and cough. She was hypotensive and tachycardic on presentation. She was treated with IV fluids and central line placed for possible pressors. Patient admitted to the ICU. The central line migrated to the subclavian/axillary area and this was removed. Her blood pressure improved and she did not require pressors. This morning, she feels better. She is somnolent but oriented. Her last alcoholic drink was before last admission a month ago. She denies alcohol use over the past 3 weeks.
[2020-10-30] MEDS: LACTATED RINGERS 1,000 ML 100 ML IV CONT (12:54)
[2020-10-30] MEDS: guaiFENesin 200 MG/10 ML UDC PO ×3 (12:55→23:41)
[2020-10-30 17:37] LABS: SARS-CoV-2 RNA PCR Positive
--- NOTE | 2020-10-30 18:36 | PC.NURSE ---
This patient, Liane Diaz, was received from ICU 1 on 10/30/20 at 1836. Patient/family oriented to unit policies and routines
[2020-10-31] VITALS: BP 100/63; PULSE 71; RESP 20; TEMP 35.7; O2SAT 99
[2020-10-31] MEDS: LACTATED RINGERS 1,000 ML 100 ML IV CONT ×2 (02:31→17:20)
[2020-10-31 04:00] VITALS: BP 115/72; PULSE 70; RESP 20; TEMP 36.6; O2SAT 98
[2020-10-31] MEDS: guaiFENesin 200 MG/10 ML UDC PO ×3 (05:20→17:20)
[2020-10-31 06:17] LABS: Hematocrit 33.4 % (37.0-47.0); Hemoglobin 10.5 g/dL (12.0-15.0); Immature Granulocyte Absolute 0.02 K/mm3 (0.00-0.031); Immature Granulocyte Percent A 0.4 % (0-0.5); Lymphocytes Absolute Auto 0.63 K/mm3 (0.9-3.2); Lymphocytes Percent Auto 12.3 % (18.3-44.2); Mean Corpuscular HGB Conc 31.4 g/dl (32-36); Mean Corpuscular Volume 95.4 fl (80-100); Mean Platelet Volume 12.4 fl (7.4-10.4); Monocytes Absolute Auto 0.2 K/mm3 (0.1-0.6); Monocytes Percent Auto 4.1 % (2.6-8.5); Neutrophils Absolute Auto 4.3 K/mm3 (1.3-6.7); Neutrophils Percent Auto 83.2 % (45.5-73.1); Platelet Count Result 216 k/mm3 (150-375); Red Cell Distribution Width 16.3 % (11.5-14.5); White Blood Count 5.1 K/mm3 (4.5-10.0)
[2020-10-31 06:36] LABS: Alanine Aminotransferase 91 U/L (4-35); Albumin Level 2.8 g/dL (3.5-5.1); Alkaline Phosphatase 346 U/L (38-126); Anion Gap 5 mmol/L (8-16); Aspartate Amino Transferase 108 U/L (14-36); Bilirubin Indirect 1.2 mg/dL (0-1.1); Bilirubin,Total 7.4 mg/dL (0.2-1.3); Blood Urea Nitrogen 14 mg/dL (7-17); Calcium 7.9 mg/dL (8.4-10.2); Carbon Dioxide 25 mmol/L (22-30); Chloride 112 mmol/L (98-107); Estimated CRCL calculation 84 ml/min; Estimated Glomerular Filt Rate > 60; Glucose 134 mg/dL (65-105); Magnesium 1.8 mg/dL (1.6-2.3); Phosphorus 1.7 mg/dL (2.5-4.5); Potassium 3.6 mmol/L (3.4-5.0); Sodium 142 mmol/L (137-145)
[2020-10-31 07:36] LABS: Folic Acid 12.2 ng/mL (2.76->20)
[2020-10-31 07:54] LABS: Iron 103 ug/dL (37-170)
[2020-10-31 08:00] VITALS: BP 111/71; PULSE 66; RESP 16; TEMP 36.4; O2SAT 95
[2020-10-31 08:03] LABS: Percent Iron Saturation 35 % (20-50)
[2020-10-31] MEDS: BENZONATATE 100 MG CAPSULE 200 MG PO ×3 (08:59→17:20)
[2020-10-31] MEDS: THIAMINE HCL 100 MG TABLET PO (08:59)
[2020-10-31] MEDS: FAMOTIDINE 20 MG TABLET PO ×2 (08:59→20:05)
[2020-10-31] MEDS: FOLIC ACID 1 MG TABLET PO (08:59)
[2020-10-31] MEDS: POTASSIUM PHOS,M-BASIC-D-BASIC 20 MMOL in SODIUM CHLORIDE 0.9% IV 250 ML 62.5 MMOL IVPB (10:18)
[2020-10-31 12:00] VITALS: BP 108/72; PULSE 68; RESP 16; TEMP 36.4; O2SAT 97
[2020-10-31 16:00] VITALS: BP 115/73; PULSE 75; RESP 16; TEMP 36.4; O2SAT 98
--- NOTE | 2020-10-31 17:00 | WPDPN ---
Progress Note: A&P Assessment and Plan (1) Septic shock: Code(s): A41.9 - Sepsis, unspecified organism; R65.21 - Severe sepsis with septic shock Status: Acute Assessment and Plan: On Presentation, patient had a blood pressure of 76/61. She has developed fever as well. Blood pressure better controlled with IV fluids. She has not required pressors. COVID (+) - No Remdesivir given her recent HepB infection and we held Decadron as well. Patient on room air so these medications are not indicated at this time. UCx growing EColi and BCx (1of2) growing Coag Negative Staph. Continue Rocephin and Vancomycin. Okay to stop Azithro. Stop IV fluids and monitor BP. Repeat BCx. (2) Pneumonia due to COVID-19 virus: Code(s): U07.1 - COVID-19; J12.82 - Pneumonia due to coronavirus disease 2018 Status: Acute Assessment and Plan: Chest x-ray shows bibasilar left greater than right airspace disease probably pneumonia; suspect COVID. Patient weaned to room air. No Remdesivir or Decadron. Low WBC from the viral illness. Continue supportive care. Continue isolation with droplet precautions. (3) UTI (urinary tract infection): Code(s): N39.0 - Urinary tract infection, site not specified Status: Acute Assessment and Plan: UA noted. Urine culture growing E coli. Blood cultures ( 1of2) growing coag-negative staph. Continue Rocephin for UTI. (4) Viral hepatitis B chronic: Code(s): B18.1 - Chronic viral hepatitis B without delta-agent Status: Acute Assessment and Plan: Hepatitis B DNA PCR was positive. Hepatitis delta antibody was negative. HIV was negative. These were drawn last month during her prior hospitalization. Her AST and ALT continue to trend downward. Total bilirubin level is 7.4 now. Continue supportive care. Patient follow-up with GI as an outpatient. Consult GI if her condition changes. (5) Jaundice: Code(s): R17 - Unspecified jaundice Status: Acute Assessment and Plan: Total Bilirubin level last admission month ago was 25-30. Bilirubin level this admission is much improved at 8.4 and has dropped to 7.4. Continue to follow periodically. (6) Anemia: Code(s): D64.9 - Anemia, unspecified Status: Acute Assessment and Plan: Hemoglobin was normal last admission a month ago. Hemoglobin is 8.9 on admission. Repeat hemoglobin this morning is 10.5. Iron studies are normal. B12 folate levels normal. (7) History of alcohol abuse: Code(s): F10.11 - Alcohol abuse, in remission Status: Inactive Assessment and Plan: Patient states that she has not drank for about 3 weeks. Unclear this is accurate. Will continue thiamine and folate. Continue to monitor with CIWA scores. Anxiolytics are on hold due to her soft blood pressure. Monitor clinically. Treat accordingly. (8) DVT prophylaxis: Code(s): Z29.9 - Encounter for prophylactic measures, unspecified Status: Acute Assessment and Plan: Lovenox Exam Narrative: Exam Narrative: AF 97.5 115/73 75 16 98% RA Gen - NARD lying almost flat in bed Chest - mild bibasilar inspiratory crackles, nml RR CV - RRR S1/S2 Abd - Soft, NT/ND, Positive BS. No organomegaly Ext - No pedal edema Neuro - awake and alert Psych - pleasant and cooperative Skin - jaundice Objective Data Vital Signs Vital Signs: Vital Signs - 24 hr 10/30/20 18:51 10/30/20 20:00 10/30/20 22:20 Temperature 97.8 F 98.6 F Pulse Rate 66 65 Respiratory Rate 20 18 Blood Pressure 96/63 L 100/65 Pulse Oximetry 100 100 95 10/31/20 00:00 10/31/20 04:00 10/31/20 08:00 Temperature 96.3 F L 97.9 F 97.5 F L Pulse Rate 71 70 66 Respiratory Rate 20 20 16 Blood Pressure 100/63 115/72 111/71 Pulse Oximetry 99 98 95 10/31/20 12:00 10/31/20 16:00 Temperature 97.5 F L 97.5 F L Pulse Rate 68 75 Respiratory Rate 16 16 Blood Pressure 108
[2020-10-31 20:00] VITALS: BP 124/70; PULSE 64; RESP 16; TEMP 36.4; O2SAT 100
[2020-10-31] MEDS: ENOXAPARIN 40 MG/0.4 ML SYRINGE SUB-Q (20:05)
[2020-11-01] VITALS: BP 108/73; PULSE 66; RESP 16; TEMP 36.4; O2SAT 98
[2020-11-01] MEDS: guaiFENesin 200 MG/10 ML UDC PO ×2 (00:28→12:12)
[2020-11-01 04:00] VITALS: BP 115/77; PULSE 63; RESP 18; TEMP 36.8; O2SAT 100
[2020-11-01 08:00] VITALS: BP 104/74; PULSE 74; RESP 20; TEMP 36.6; O2SAT 98
[2020-11-01 08:41] LABS: Hematocrit 29.9 % (37.0-47.0); Hemoglobin 9.8 g/dL (12.0-15.0); Mean Corpuscular HGB Conc 32.8 g/dl (32-36); Mean Corpuscular Hemoglobin 30.6 pg (26-34); Mean Corpuscular Volume 93.4 fl (80-100); Mean Platelet Volume 11.6 fl (7.4-10.4); Platelet Count Result 203 k/mm3 (150-375); White Blood Count 5.6 K/mm3 (4.5-10.0)
[2020-11-01 08:56] LABS: Alanine Aminotransferase 73 U/L (4-35); Albumin Level 2.7 g/dL (3.5-5.1); Alkaline Phosphatase 298 U/L (38-126); Anion Gap 2 mmol/L (8-16); Aspartate Amino Transferase 74 U/L (14-36); Bilirubin,Total 6.6 mg/dL (0.2-1.3); Blood Urea Nitrogen 13 mg/dL (7-17); Carbon Dioxide 27 mmol/L (22-30); Chloride 112 mmol/L (98-107); Estimated CRCL calculation 72 ml/min; Estimated Glomerular Filt Rate > 60; Glucose 88 mg/dL (65-105); Phosphorus 2.1 mg/dL (2.5-4.5); Potassium 3.7 mmol/L (3.4-5.0); Sodium 141 mmol/L (137-145)
[2020-11-01 09:25] LABS: Vancomycin Trough 15.5 ug/mL (10.0-20.0)
[2020-11-01] MEDS: ENOXAPARIN 40 MG/0.4 ML SYRINGE SUB-Q (09:53)
[2020-11-01] MEDS: FOLIC ACID 1 MG TABLET PO (09:54)
[2020-11-01] MEDS: FAMOTIDINE 20 MG TABLET PO (09:54)
[2020-11-01] MEDS: BENZONATATE 100 MG CAPSULE 200 MG PO ×2 (09:54→12:12)
[2020-11-01] MEDS: THIAMINE HCL 100 MG TABLET PO (09:54)
[2020-11-01 12:00] VITALS: BP 94/60; PULSE 64; RESP 20; TEMP 36.4; O2SAT 98
--- NOTE | 2020-11-01 13:32 | PM.DS ---
DS: Admitting Diagnosis Admitting Diagnosis Admitting Diagnosis: fever and cough DS: Discharge Diagnosis Discharge Diagnosis (1) Septic shock: Code(s): A41.9 - Sepsis, unspecified organism; R65.21 - Severe sepsis with septic shock Status: Acute Assessment and Plan: On presentation, patient had a blood pressure of 76/61. She had developed fever as well. Blood pressure better controlled with IV fluids. She never required pressors. COVID (+) 10/29/20. No Remdesivir given her recent HepB infection and we held Decadron as well. Patient now on room air so these medications are not indicated at this time. UCx growing EColi and BCx (1of2) growing Coag Negative Staph but felt to be contaminant. Treated with Rocephin and Vancomycin. Home today to finish abx for UTI. (2) Pneumonia due to COVID-19 virus: Code(s): U07.1 - COVID-19; J12.82 - Pneumonia due to coronavirus disease 2018 Status: Acute Assessment and Plan: Chest x-ray shows bibasilar left greater than right airspace disease consistent with COVID pneumonia. Patient was weaned to room air. No Remdesivir or Decadron. Low WBC initially but normal now felt related to the viral illness. Symptomatic care. (3) UTI (urinary tract infection): Code(s): N39.0 - Urinary tract infection, site not specified Status: Acute Assessment and Plan: Urine culture growing E coli. Blood cultures ( 1of2) growing coag-negative staph but felt to be contaminant. Treated with Rocephin (4) Viral hepatitis B chronic: Code(s): B18.1 - Chronic viral hepatitis B without delta-agent Status: Acute Assessment and Plan: Hepatitis B DNA PCR was positive. Hepatitis delta antibody was negative. HIV was negative. These were drawn last month during her prior hospitalization. Here, her AST and ALT continue to trend downward. AST 74, ALT 73 and Total bilirubin level is 6.6 now. Patient to follow-up with GI as an outpatient. (5) Jaundice: Code(s): R17 - Unspecified jaundice Status: Acute Assessment and Plan: Total Bilirubin level last admission month ago was 25-30. Bilirubin level this admission is much improved at 8.4 and has dropped to 6.6. (6) Anemia: Code(s): D64.9 - Anemia, unspecified Status: Acute Assessment and Plan: Hemoglobin was normal last admission a month ago. Hemoglobin is 8.9 on admission. Repeat hemoglobin climbed to the 9-10 range. Iron studies are normal. B12 folate levels normal. Monitor as outpatient. Will continue Pepcid as outpatient. (7) History of alcohol abuse: Code(s): F10.11 - Alcohol abuse, in remission Status: Inactive Assessment and Plan: Patient states that she has not drank for about 3 weeks. Unclear this is accurate. She was treated with thiamine and folate and monitored with [facility] protocol. Anxiolytics were on hold due to her soft blood pressure. DS: Summary Hospital Course Reason for hospitalization: 50yo female recently hospitalized for HepB, SLE and asthma here for fever and cough. Please see H&P for details. Hospital Course: Please see above for details hospital course. Status at Discharge Cognitive/behavioral status at discharge: Stable for discharge Time Spent with Patient Time attestation: Total time spent providing and/or coordinating discharge services: 34 minutes Time spent: Greater than 30 minutes Exam Narrative: Exam Narrative: AF 97.5 94/60 64 20 98% RA Gen - NARD lying almost flat in bed Chest -few inspiratory basilar crackles otherwise clear. CV - RRR S1/S2 Abd - Soft, NT/ND, Positive BS. Ext - No pedal edema Psych - pleasant and cooperative Skin - jaundice DS: Data Data Completed and Pending Labs on day of discharge: Labs from last 24 hours 11/01/20 11/01/20 11/01/20 07:57 07:57 07:57 WBC 5.6 RBC 3.20 L Hgb 9.8 L Hct 29.9 L MCV 93.4 MCH 30.6 MC
[2020-11-01] MEDS: POTASSIUM/PHOSPHORUS/SODIUM 1.5 GM PACKET 1 PACKET PO (14:25)
== END 2020-11-01 14:50 | disposition home or self-care (01) | DRG 720 ==
LOC: ANHED 17:52 → ANHICU 21:57 → ANH3MEDSUR 10-30 19:10
PROVIDERS: Internal Medicine; Admitting Provider Family Medicine; Emergency Provider Emergency Medicine; Visit Provider Internal Medicine
DX: A41.89 Other specified sepsis (principal); U07.1 COVID-19; R65.21 Severe sepsis with septic shock; J12.82 Pneumonia due to coronavirus disease 2019; M32.9 Systemic lupus erythematosus, unspecified; N39.0 Urinary tract infection, site not specified; B96.20 Unspecified Escherichia coli [E. coli] as the cause of diseases classified elsewhere; B18.1 Chronic viral hepatitis B without delta-agent; D64.9 Anemia, unspecified; F10.11 Alcohol abuse, in remission; Z28.21 Immunization not carried out because of patient refusal; Z79.899 Other long term (current) drug therapy; Z87.891 Personal history of nicotine dependence; Z88.0 Allergy status to penicillin; Z88.3 Allergy status to other anti-infective agents
CPT/HCPCS: 36415; 36556; 36600; 71045; 80048; 80053; 80202; 81001; 82140; 82550; 82607; 82728; 82746; 82805; 83540; 83550; 83605; 83735; 84100; 84443; 85025; 85027; 85610; 85730; 87040; 87077; 87086; 87088; 87186; 93005; 96361; 96374; 96375; 99291; A9270; C1751; C9803; J0456; J0696; J1100; J1650; J1885; J3370; J7030; J7040; J7050; J7120; U0003; U0005

== ENCOUNTER 2022-04-06 10:52 | Emergency (ER) | payer OTHER, SELFPAY ==
[2022-04-06 10:54] VITALS: BP 124/87; PULSE 83; RESP 16; TEMP 36.4; O2SAT 100
--- NOTE | 2022-04-06 11:05 | ED.SKABFB ---
HPI - Skin/Abscess/Foreign Bdy General Chief complaint: Skin/Abscess/Foreign Body Stated complaint: blister Time Seen by Provider: 04/06/22 10:58 History of Present Illness HPI narrative: 52-year-old female presents to the emergency room for evaluation of a blister on her right upper extremity. Patient states that she is concerned for having monkeypox. Patient denies fever, headache, muscle aches and backache, swollen lymph nodes. Denies burning herself or exposure to insect bites. Denies itching Related Data Home Medications Medication Instructions Recorded Confirmed No Home Medications 04/06/22 04/06/22 Allergies Allergy/AdvReac Type Severity Reaction Status Date / Time metronidazole [From Flagyl] Allergy Mild Rash Verified 04/06/22 11:03 Penicillins Allergy Mild Rash Verified 04/06/22 11:03 Review of Systems Review of Systems: CONSTITUTIONAL: Denies fever, chills, or sweats. EYES: Denies visual changes, redness, or discharge. ENT: Denies rhinorrhea, congestion, sore throat, or otalgia. CARDIOVASCULAR: Denies chest pain, palpitations, or edema. RESPIRATORY: Denies cough or dyspnea. GASTROINTESTINAL: Denies abdominal pain, nausea, vomiting, or diarrhea. GENITOURINARY: Denies dysuria or hematuria. SKIN: Reports blister to right upper extremity MUSCULOSKELETAL: Denies back pain, joint pain, or myalgia. NEUROLOGIC: Denies headache, numbness, dizziness, or weakness. PSYCHIATRIC: Denies anxiety or depression. [facility] Past Medical History Medical History Asthma History of alcohol abuse Drank heavily for about 20 years, now drinks a couple of beers a night. History of tobacco use Systemic lupus erythematosus Told she had lupus and was referred to a specialist in [place] however did not have follow-up. Surgical History Surgical History History of facial surgery Patient reportedly had 62 facial plastic surgeries after being attacked by a dog at the age of 6. History of incision and drainage Left forearm spider bite. Family History Family History Father Cerebral aneurysm Systemic lupus erythematosus Sibling Muscular dystrophy Social History Social History Social History: The patient lives in [place] with her parents. No children, not . She smoked about half a pack of cigarettes off and on for many years and quit in 2019. She drank heavily in the past but for the last 2 years she has only been drinking 2 beers most evenings. Occasional marijuana use. She designates her parents as her surrogate decision makers and she wishes to be a full code. Years smoked: 30 Smoking status: Former smoker Smoking end date: 09/25/19 Alcohol intake: former Drinks per week: 2 Substance use: current Substance use type: marijuana Last use: 09/18/2020 Gender identity (if verbalized by the patient): Female Spiritual care concerns: No Exam Narrative: GENERAL: Well-appearing, well-nourished, no physical limitations, and in no acute distress. HEAD: Normocephalic, atraumatic. EYES: Conjunctivae normal, PERRLA and EOMI. CHEST: Clear to auscultation. No respiratory distress. No wheezes rales or rhonchi. No tenderness. HEART: Regular rate and rhythm. No murmur heard. Normal peripheral pulses. BACK: No CVA tenderness; No cervical/thoracic/lumbar tenderness, step-offs, bony abnormality; FROM EXTREMITIES: Normal range of motion. No edema. No clubbing or cyanosis SKIN: Single bulla noted to right bicep with surrounding erythema NEURO: No focal deficits. Alert and oriented x3. MAEW. CN's II-XI intact bilaterally, normal gait PSYCH: Cooperative. Normal mood and affect. Course Vital Signs Vital signs: Vital Signs Temperature 36.4 C 04/06/22 10:54 Pulse Rate 83 04/06/22 10
== END 2022-04-06 11:42 | disposition home or self-care (01) ==
LOC: ANHED 11:11
PROVIDERS: Emergency Provider Nurse Practitioner Family
DX: R23.8 Other skin changes (principal); J45.909 Unspecified asthma, uncomplicated; Z87.891 Personal history of nicotine dependence
CPT/HCPCS: 99281

== ENCOUNTER 2022-04-21 05:05 | Emergency (ER) | payer OTHER, SELFPAY ==
[2022-04-21 05:11] VITALS: BP 149/92; PULSE 77; RESP 18; TEMP 36.1; O2SAT 100
--- NOTE | 2022-04-21 05:14 | ED.EAR ---
HPI - Ear Problem General Chief complaint: Ear Stated complaint: right ear pain x1 wk Time Seen by Provider: 04/21/22 05:08 Source: patient and RN notes reviewed Mode of arrival: ambulatory Limitations: no limitations History of Present Illness HPI Narrative: This is a 52 year old female who presents for evaluation of right jaw pain. She is having pain at joint to right jaw. She reports she feels popping. She has not taken anything for her pain. She denies fever, chills or ear drainage. Denies any trauma to her face. Related Data Allergies Allergy/AdvReac Type Severity Reaction Status Date / Time metronidazole [From Flagyl] Allergy Mild Rash Verified 04/21/22 05:16 Penicillins Allergy Mild Rash Verified 04/21/22 05:16 Review of Systems Constitutional: Constitutional: Denies chills, Denies fatigue and Denies fever(s) Eyes: Eyes: Denies change in vision and Denies photophobia PMFSH Past Medical History Medical History Asthma History of alcohol abuse Drank heavily for about 20 years, now drinks a couple of beers a night. History of tobacco use Systemic lupus erythematosus Told she had lupus and was referred to a specialist in [place] however did not have follow-up. Surgical History Surgical History History of facial surgery Patient reportedly had 62 facial plastic surgeries after being attacked by a dog at the age of 6. History of incision and drainage Left forearm spider bite. Family History Family History Father Cerebral aneurysm Systemic lupus erythematosus Sibling Muscular dystrophy Social History Social History Social History: The patient lives in [place] with her parents. No children, not . She smoked about half a pack of cigarettes off and on for many years and quit in 2019. She drank heavily in the past but for the last 2 years she has only been drinking 2 beers most evenings. Occasional marijuana use. She designates her parents as her surrogate decision makers and she wishes to be a full code. Years smoked: 30 Smoking status: Former smoker Smoking end date: 09/25/19 Alcohol intake: former Drinks per week: 2 Substance use: current Substance use type: marijuana Last use: 09/18/2020 Gender identity (if verbalized by the patient): Female Spiritual care concerns: No Exam Const: General: no acute distress and alert Orientation/consciousness: patient oriented x3 Limitations: no limitations HENMT: Head: normocephalic and atraumatic Ears: TM's normal bilaterally and EAC's normal General nose exam: Normal external nose present Face and sinus: normal facial exam and face symmetric Mouth: Yes Normal oral and palatal mucosa present, Yes lip normal, Yes tongue normal, Yes oropharynx normal, Yes moist mucous membranes, No trismus, No restricted motion and Yes other (pain at TMJ with motion, no swelling, no erythema to face) Eyes: EOM: EOMs intact bilaterally Resp: Effort & Inspection: normal respiratory effort Course Reevaluation(s) Reevaluation #1: PAtient has no swelling to her face or erythema. No dental abscess seen. Date: 04/21/22 Time: 05:19 Vital Signs Vital signs: Vital Signs Temperature 97.0 F L 04/21/22 05:11 Pulse Rate 77 04/21/22 05:11 Respiratory Rate 18 04/21/22 05:11 Blood Pressure 149/92 H 04/21/22 05:11 Pulse Oximetry 100 04/21/22 05:11 Oxygen Delivery Room Air 04/21/22 05:11 Temperature 97.0 F L 04/21/22 05:11 Pulse Rate 77 04/21/22 05:11 Respiratory Rate 18 04/21/22 05:11 Blood Pressure 149/92 H 04/21/22 05:11 Pulse Oximetry 100 04/21/22 05:11 Oxygen Delivery Room Air 04/21/22 05:11 Medical Decision Making Vital Signs Vital Signs: Vital Signs Temperature
== END 2022-04-21 05:40 | disposition home or self-care (01) ==
LOC: ANHED 05:34
PROVIDERS: Emergency Provider General Practice
DX: M26.621 Arthralgia of right temporomandibular joint (principal); J45.909 Unspecified asthma, uncomplicated
CPT/HCPCS: 99283